=== PATIENT | male | born 1950 | race Caucasian/White ===

== ENCOUNTER 2017-02-25 10:39 | Inpatient (IN) | payer MEDICARE, BC ==
[~2017-02-25] VITALS: Ht 180.3 cm; Wt 107.9 kg
[2017-02-25 10:42] VITALS: BP 148/85; PULSE 87; RESP 16; TEMP 98.6; O2SAT 96
--- NOTE | 2017-02-25 11:20 | PD ---
HPI Chief Complaint: Laceration/Skin Injury Time Seen by Provider: 11:19 Travel History International Travel<30 days: No Contact w/Intl Traveler<30days: No Traveled to known affect area: No PFSH Past Medical History Hx Anticoagulant Therapy: Yes Cardiovascular Problems: Yes Allergies-Medications (Allergen,Severity, Reaction): Coded Allergies: Penicillins (Verified Allergy, Unknown, 02/25/17) codeine (Verified Allergy, Unknown, 02/25/17) Reported Meds & Prescriptions Reported Meds & Active Scripts Active Data Data Last Documented VS Vital Signs Date Time Temp Pulse Resp B/P (MAP) Pulse Ox O2 Delivery O2 Flow Rate FiO2 02/25/17 14:00 98.4 86 16 136/82 (100) 100 Room Air Orders Orders Finger ([id number]) (02/25/17 ) Basic Metabolic Panel (Bmp) (02/25/17 12:21) Complete Blood Count With Diff (02/25/17 12:21) Prothrombin Time / Inr (Pt) (02/25/17 12:21) Act Partial Throm Time (Ptt) (02/25/17 12:21) Iv Access Insert/Monitor (02/25/17 12:21) NPO (02/25/17 12:21) Sodium Chloride 0.9% Flush (Ns Flush) (02/25/17 12:30) Electrocardiogram (02/25/17 12:21) Diet Npo (02/25/17 Lunch) Consent (02/25/17 12:23) Consult Hand Surgery (02/25/17 ) (Hub Use Only)Inp Phy Cons/Ref (02/25/17 ) Ketorolac Inj (Toradol Inj) (02/25/17 14:00) Admit Order (Ed Use Only) (02/25/17 13:57) Labs Laboratory Tests Test 02/25/17 12:47 White Blood Count 4.9 TH/MM3 Red Blood Count 3.89 MIL/MM3 Hemoglobin 12.7 GM/DL Hematocrit 37.7 % Mean Corpuscular Volume 97.1 FL Mean Corpuscular Hemoglobin 32.8 PG Mean Corpuscular Hemoglobin Concent 33.8 % Red Cell Distribution Width 13.6 % Platelet Count 138 TH/MM3 Mean Platelet Volume 6.4 FL Neutrophils (%) (Auto) 58.4 % Lymphocytes (%) (Auto) 31.0 % Monocytes (%) (Auto) 8.3 % Eosinophils (%) (Auto) 1.6 % Basophils (%) (Auto) 0.7 % Neutrophils # (Auto) 2.9 TH/MM3 Lymphocytes # (Auto) 1.5 TH/MM3 Monocytes # (Auto) 0.4 TH/MM3 Eosinophils # (Auto) 0.1 TH/MM3 Basophils # (Auto) 0.0 TH/MM3 CBC Comment DIFF FINAL Differential Comment Prothrombin Time 11.7 SEC Prothromb Time International Ratio 1.1 RATIO Activated Partial Thromboplast Time 30.5 SEC Blood Urea Nitrogen 15 MG/DL Creatinine 1.24 MG/DL Random Glucose 101 MG/DL Calcium Level 9.1 MG/DL Sodium Level 141 MEQ/L Potassium Level 4.1 MEQ/L Chloride Level 108 MEQ/L Carbon Dioxide Level 27.4 MEQ/L Anion Gap 6 MEQ/L Estimat Glomerular Filtration Rate 58 ML/MIN MDM Medical Decision Making Medical Screen Exam Complete: Yes Emergency Medical Condition: Yes Medical Record Reviewed: Yes Scripts Hydrocodone-Acetaminophen (Hydrocodone-Acetaminophen) 7.5-325 mg Tab 1 TAB PO Q4H Y for PAIN 1-10, #30 TAB Prov: Holland Rondon MD, R3 02/26/17 Lexie Brock Feb 25, 2017 11:20
--- NOTE | 2017-02-25 11:37 | RADRPT ---
EXAM DATE/TIME: 02/25/2017 11:13 [place] COMPARISON: No previous studies available for comparison. INDICATIONS : Right hand first digit laceration. Patient states he smashed the top of his thumb in a piece of equip ment. MEDICAL HISTORY : None. SURGICAL HISTORY : None. ENCOUNTER: Initial ACUITY: 1 day PAIN SCORE: 9/10 LOCATION: Right hand, first digit. FINDINGS: There is soft tissue injury to the distal portion of the first finger. There also appears to be a fra cture involving the terminal tuft of the distal phalanx. No joint dislocation is seen. There is overl michelle gauze material. There is a BB in the soft tissues at the base of the first metacarpal. CONCLUSION: 1. Soft tissue injury and fracture of the distal phalanx of the first finger. 2. Single BB in the soft tissues at the base of the first metacarpal. Man Wong MD on February 25, 2017 at 11:35 Board Certified Radiologist. This report was verified electronically.
[2017-02-25] MEDS ORDERED: LIDOCAINE HCL 1% PF 5 ML AMPULE OTHER ONE (12:00)
[2017-02-25] MEDS ORDERED: PHENYLEPH/NS 1000 MCG/10 ML SYR IV ONE (12:00)
[2017-02-25] MEDS ORDERED: ONDANSETRON HCL 4 MG/2 ML VIAL IV PUSH ONE (12:00)
[2017-02-25] MEDS ORDERED: ROCURONIUM INJ 50 MG/5 ML SYRINGE IV PUSH ONE (12:00)
[2017-02-25] MEDS ORDERED: DEXAMETHASONE SOD PHOS 4 MG/ML VIAL IV ONE (12:00)
[2017-02-25] MEDS ORDERED: ePHEDrine/NS 25 MG/5 ML SYR IV ONE (12:00)
[2017-02-25] MEDS ORDERED: MIDAZOLAM HCL 2 MG/2 ML VIAL IV ONE (12:00)
[2017-02-25] MEDS ORDERED: PROPOFOL 200 MG/20 ML AMP IV ONE (12:00)
[2017-02-25] MEDS ORDERED: SODIUM CHLOR 0.9% 250 ML INJ 250 ML IV ONE (12:00)
--- NOTE | 2017-02-25 12:00 | PD ---
HPI Chief Complaint: Laceration/Skin Injury Time Seen by Provider: 13:10 Travel History International Travel<30 days: No Contact w/Intl Traveler<30days: No Traveled to known affect area: No History of Present Illness HPI 67-year-old male here for evaluation of right thumb injury/laceration. Patient reports the thumb was crushed by a briar wood sorter prior to arrival while at work. Patient is right hand dominant. He denies paresthesia or weakness of the thumb. Tetanus immunization is up-to-date. He reports no other injury. [facility] Past Medical History Narrative Medical Afib, hypertension, hyperlipidemia Hx Anticoagulant Therapy: Yes Cardiovascular Problems: Yes Social History Tobacco Use: No Allergies-Medications (Allergen,Severity, Reaction): Coded Allergies: Penicillins (Verified Allergy, Unknown, 02/25/17) codeine (Verified Allergy, Unknown, 02/25/17) Review of Systems Except as stated in HPI: all other systems reviewed are Neg Physical Exam Narrative GENERAL: Well-nourished, well-developed patient. SKIN: Focused skin assessment. Right thumb: finger tip amputation with large evulsion skin laceration and nail bed injury. No visible/palpable bone. HEAD: Normocephalic. EYES: No scleral icterus. No injection or drainage. NECK: Supple, trachea midline. No JVD or lymphadenopathy. CARDIOVASCULAR: Regular rate and rhythm without murmurs, gallops, or rubs. RESPIRATORY: Breath sounds equal bilaterally. No accessory muscle use. GASTROINTESTINAL: Abdomen soft, non-tender, nondistended. MUSCULOSKELETAL: No cyanosis, or edema. Right thumb: Tip amputation with large avulsion skin laceration and nail bed injury. Patient can fully flex and extend the digit. The extremity is neurovascular intact. Bleeding well controlled. Data Data Last Documented VS Vital Signs Date Time Temp Pulse Resp B/P (MAP) Pulse Ox O2 Delivery O2 Flow Rate FiO2 02/25/17 11:19 16 02/25/17 10:42 98.6 87 148/85 (106) 96 Orders Orders Finger ([id number]) (02/25/17 ) Basic Metabolic Panel (Bmp) (02/25/17 12:21) Complete Blood Count With Diff (02/25/17 12:21) Prothrombin Time / Inr (Pt) (02/25/17 12:21) Act Partial Throm Time (Ptt) (02/25/17 12:21) Iv Access Insert/Monitor (02/25/17 12:21) NPO (02/25/17 12:21) Sodium Chloride 0.9% Flush (Ns Flush) (02/25/17 12:30) Electrocardiogram (02/25/17 12:21) Diet Npo (02/25/17 Lunch) Consent (02/25/17 12:23) Consult Hand Surgery (02/25/17 ) (Hub Use Only)Inp Phy Cons/Ref (02/25/17 ) Ketorolac Inj (Toradol Inj) (02/25/17 14:00) Admit Order (Ed Use Only) (02/25/17 13:57) Labs Laboratory Tests Test 02/25/17 12:47 White Blood Count 4.9 TH/MM3 Red Blood Count 3.89 MIL/MM3 Hemoglobin 12.7 GM/DL Hematocrit 37.7 % Mean Corpuscular Volume 97.1 FL Mean Corpuscular Hemoglobin 32.8 PG Mean Corpuscular Hemoglobin Concent 33.8 % Red Cell Distribution Width 13.6 % Platelet Count 138 TH/MM3 Mean Platelet Volume 6.4 FL Neutrophils (%) (Auto) 58.4 % Lymphocytes (%) (Auto) 31.0 % Monocytes (%) (Auto) 8.3 % Eosinophils (%) (Auto) 1.6 % Basophils (%) (Auto) 0.7 % Neutrophils # (Auto) 2.9 TH/MM3 Lymphocytes # (Auto) 1.5 TH/MM3 Monocytes # (Auto) 0.4 TH/MM3 Eosinophils # (Auto) 0.1 TH/MM3 Basophils # (Auto) 0.0 TH/MM3 CBC Comment DIFF FINAL Differential Comment Prothrombin Time 11.7 SEC Prothromb Time International Ratio 1.1 RATIO Activated Partial Thromboplast Time 30.5 SEC Blood Urea Nitrogen 15 MG/DL Creatinine 1.24 MG/DL Random Glucose 101 MG/DL Calcium Level 9.1 MG/DL Sodium Level 141 MEQ/L Potassium Level 4.1 MEQ/L Chloride Level 108 MEQ/L Carbon Dioxide Level 27.4 MEQ/L Anion Gap 6 MEQ/L Estimat Glomerular Filtration Rate 58 ML/MIN MDM Medical Decision Making Medical Screen Exam Complete: Yes Emergency Medical Condition: Yes Differential Diagnosis Fingertip amputation, avulsion skin injury, finger nail injury Narrative Course 67-year-old male here with right thumb fingertip amputation caused by a briar wood sorter prior to arrival. The extremity is neurovascular intact. No visible of palpable bone. X-ray show a small distal tuft fracture. Tetanus up to date. spoke with toy consultant hand surgeon Dr. Angella Mata who would like the patient admitted to medicine & will plan to take patient to the OR this afternoon. Patient will be kept NPO. Non adherent dressing applied. Labs reviewed nothing acutely abnormal. Physician Communication Physician Communication [phone] Spoke with family residents who agreed to admit patient to their services. Diagnosis Primary Impression: Amputation of finger tip Qualified Codes: S68.129A - Partial traumatic metacarpophalangeal amputation of unspecified finger, initial encounter Admitting Information Admitting Physician Requests: Admit Tracey Goodson Feb 25, 2017 12:00
[2017-02-25] MEDS ORDERED: SODIUM CHLORIDE 0.9% FLUSH 10 ML FLUSH IV FLUSH PRN (12:30)
[2017-02-25 12:56] LABS: AUTOMATED NEUTROPHIL # 2.9 TH/MM3 (1.8-7.7); BASOPHIL % 0.7 % (0.0-2.0); EOSINOPHIL # 0.1 TH/MM3 (0-0.4); EOSINOPHIL % 1.6 % (0.0-4.0); HEMATOCRIT 37.7 % (39.0-51.0); HEMO FLAGS DIFF FINAL; LYMPHOCYTE # 1.5 TH/MM3 (1.0-4.8); MEAN CELL VOLUME 97.1 FL (80.0-100.0); MEAN CORPUSCULAR HEMOGLOBIN 32.8 PG (27.0-34.0); MEAN CORPUSCULAR HGB CONC 33.8 % (32.0-36.0); MONO % 8.3 % (0.0-8.0); NEUT % 58.4 % (16.0-70.0); PLATELET COUNT 138 TH/MM3 (150-450); RED BLOOD COUNT 3.89 MIL/MM3 (4.50-5.90); RED CELL DISTRIBUTION WIDTH 13.6 % (11.6-17.2); WHITE BLOOD COUNT 4.9 TH/MM3 (4.0-11.0)
[2017-02-25 13:08] LABS: APTT (PATIENT) 30.5 SEC (24.3-30.1); INTERNATIONAL NORMALIZED RATIO 1.1 RATIO; PROTHROMBIN TIME - PATIENT 11.7 SEC (9.8-11.6)
[2017-02-25 13:19] LABS: BICARBONATE 27.4 MEQ/L (21.0-32.0); POTASSIUM 4.1 MEQ/L (3.5-5.1)
[2017-02-25 14:00] VITALS: BP 136/82; PULSE 86; RESP 16; TEMP 98.4; O2SAT 100
[2017-02-25] MEDS ORDERED: KETOROLAC TROMETHAMINE 60 MG/2 ML (IM) VIAL IM ONE (14:00)
[2017-02-25] MEDS ORDERED: LIDOCAINE HCL 2% 50 ML VIAL ONE (14:15)
--- NOTE | 2017-02-25 14:26 | HHI.HP ---
[facility] Service Family Medicine Primary Care Physician No Primary Care Physician Admission Diagnosis R THUMB FINGERTIP INJURY/AMPUTATION Diagnoses: International Travel<30 Days: No Contact w/Intl Traveler<30days: No Known Affected Area: No History of Present Illness 67 y/o M w/hx of afib presents with amputated 1st right digit. 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 Afterwards, he saw profuse bleeding and made a fist with his right hand; then he buried his thumb in his fist and came to hospital. Upon entering the hospital, he threw his glove with a piece of his finger in it into the trash can. He denies numbness, tingling, or weakness. Is able to move the fingers in his right hand. Tetanus shot within a year. Patient currently endorses 8/10 throbbing pain at his hand. (Rochelle Sandoval MD R1) Review of Systems Constitutional: DENIES: Fever, Chills, Dizziness Endocrine: DENIES: Heat/cold intolerance, Polyuria Eyes: DENIES: Blurred vision, Eye inflammation, Vision loss Ears, nose, mouth, throat: DENIES: Hearing loss, Nasal discharge, Ear Pain Respiratory: DENIES: Cough, Shortness of breath Cardiovascular: DENIES: Chest pain, Palpitations Gastrointestinal: DENIES: Abdominal pain, Constipation, Diarrhea Genitourinary: DENIES: Urinary frequency, Urgency Musculoskeletal: DENIES: Joint pain, Muscle aches, Stiffness Integumentary: DENIES: Pruritus, Rash Hematologic/lymphatic: DENIES: Bruising, Lymphadenopathy Neurologic: DENIES: Headache, Paresthesias, Poor Balance Psychiatric: DENIES: Anxiety, Mood changes (Rochelle Sandoval MD R1) Past Family Social History Past Medical History afib - controlled with medication Past Surgical History Knee left right ankle - cataracts - 10 years ago Reported Medications Atorvaststin 40 mg AM amlodipine 2.5 mg pm propafenone HCL 325 mg pantoprazole 40 mg BID eliquis 5 mg BID valsartan 160 mg BID (Rochelle Sandoval MD R1) Allergies: Coded Allergies: Penicillins (Verified Allergy, Unknown, 02/25/17) codeine (Verified Allergy, Unknown, 02/25/17) Social History drink: weekends, 2/3 drinks/day or 4crown royal (Rochelle Sandoval MD R1) Physical Exam Vital Signs Vital Signs Date Time Temp Pulse Resp B/P (MAP) Pulse Ox O2 Delivery O2 Flow Rate FiO2 02/25/17 11:19 16 02/25/17 10:42 98.6 87 16 148/85 (106) 96 Physical Exam GENERAL: Pleasant older overweight gentleman laying in bed appearing uncomfortable. Right elbow is bent and hand is bandanged w/TINO-wrap and elevated. SKIN: Cool and dry. HEAD: Atraumatic. Normocephalic. EYES: Extraocular motions intact. ENT: Nose without bleeding, purulent drainage or septal hematoma. Airway patent. NECK: Trachea midline. No JVD or lymphadenopathy. CARDIOVASCULAR: Regular rate and rhythm. RESPIRATORY: Clear to auscultation. Breath sounds equal bilaterally. GASTROINTESTINAL: Abdomen soft, non-tender, nondistended. MUSCULOSKELETAL: Full ROM intact at extremities. Blood visible through bandage near the thumb on right hand. patient is able to move 4 other digits and sensation at all fingers is intact. NEUROLOGICAL: Awake and alert. Motor and sensory grossly within normal limits. Normal speech. Laboratory Laboratory Tests Test 02/25/17 12:47 White Blood Count 4.9 Red Blood Count 3.89 Hemoglobin 12.7 Hematocrit 37.7 Mean Corpuscular Volume 97.1 Mean Corpuscular Hemoglobin 32.8 Mean Corpuscular Hemoglobin Concent 33.8 Red Cell Distribution Width 13.6 Platelet Count 138 Mean Platelet Volume 6.4 Neutrophils (%) (Auto) 58.4 Lymphocytes (%) (Auto) 31.0 Monocytes (%) (Auto) 8.3 Eosinophils (%) (Auto) 1.6 Basophils (%) (Auto) 0.7 Neutrophils # (Auto) 2.9 Lymphocytes # (Auto) 1.5 Monocytes # (Auto) 0.4 Eosinophils # (Auto) 0.1 Basophils # (Auto) 0.0 CBC Comment DIFF FINAL Differential Comment Prothrombin Time 11.7 Prothromb Time International Ratio 1.1 Activated Partial Thromboplast Time 30.5 Blood Urea Nitrogen 15 Creatinine 1.24 Random Glucose 101 Calcium Level 9.1 Sodium Level 141 Potassium Level 4.1 Chloride Level 108 Carbon Dioxide Level 27.4 Anion Gap 6 Estimat Glomerular Filtration Rate 58 (Rochelle Sandoval MD R1) Result Diagram: 02/25/17 1247 02/25/17 1247 Caprini VTE Risk Assessment Caprini VTE Risk Assessment: Mod/High Risk (score >= 2) Caprini Risk Assessment Model Point Value = 1 Point Value = 2 Point Value = 3 Point Value = 5 Age 41-60 Minor surgery BMI > 25 kg/m2 Swollen legs Varicose veins or History of unexplained or recurrent spontaneous Oral contraceptives or hormone replacement Sepsis (< 1 month) Serious lung disease, including pneumonia (< 1 month) Abnormal pulmonary function Acute myocardial infarction Congestive heart failure (< 1 month) History of inflammatory bowel disease Medical patient at bed rest Age 61-74 Arthroscopic surgery Major open surgery (> 45 min) Laparoscopic surgery (> 45 min) Malignancy Confined to bed (> 72 hours) Immobilizing plaster cast Central venous access Age >= 75 History of VTE Family history of VTE Factor V Leiden Prothrombin [id number] Lupus anticoagulant Anticardiolipin antibodies Elevated serum homocysteine Heparin-induced thrombocytopenia Other congenital or acquired thrombophilia Stroke (< 1 month) Elective arthroplasty Hip, pelvis, or leg fracture Acute spinal cord injury (< 1 month) Prophylaxis Regimen Total Risk Factor Score Risk Level Prophylaxis Regimen 0-1 Low Early ambulation 2 Moderate Order ONE of the following: *Sequential Compression Device (SCD) *Heparin 5000 units SQ BID 3-4 Higher Order ONE of the following medications: *Heparin 5000 units SQ TID *Enoxaparin/Lovenox 40 mg SQ daily (WT < 150 kg, CrCl > 30 mL/min) *Enoxaparin/Lovenox 30 mg SQ daily (WT < 150 kg, CrCl > 10-29 mL/min) *Enoxaparin/Lovenox 30 mg SQ BID (WT < 150 kg, CrCl > 30 mL/min) AND/OR *Sequential Compression Device (SCD) 5 or more Highest Order ONE of the following medications: *Heparin 5000 units SQ TID (Preferred with Epidurals) *Enoxaparin/Lovenox 40 mg SQ daily (WT < 150 kg, CrCl > 30 mL/min) *Enoxaparin/Lovenox 30 mg SQ daily (WT < 150 kg, CrCl > 10-29 mL/min) *Enoxaparin/Lovenox 30 mg SQ BID (WT < 150 kg, CrCl > 30 mL/min) AND *Sequential Compression Device (SCD) (Rochelle Sandoval MD R1) Assessment and Plan Code Status FULL Discussed Condition With Dr. Latif (Rochelle Sandoval MD R1) Attending Attestation THIS CASE WAS DISCUSSED WITH THE RESIDENT PHYSICIANS. I HAVE REVIEWED THE RECORD AND AGREE WITH THE ABOVE NOTE AND PLAN OF CARE WAS DISCUSSED. I HAVE AUTHORIZED THE ORDER FOR ADMISSION TO AN IN-PATIENT STATUS. (Radha Jorge MD) Problem List: (1) Amputation of finger tip ICD Codes: S68.129A - Partial traumatic metacarpophalangeal amputation of unspecified finger, initial encounter Status: Acute Plan: Neurovascularly intact. XR of right hand shows small distal tuft fracture. -Hand Surgery consulted. -Patient transported to the OR at around 1430 for repair. - will provide Tylenol and [place] PRN for pain post-surgery (2) FEN Plan: GI Prophy: home pantoprazole 40 mg daily Nutrition: NPO for surgery Fluids: none Electrolytes: none DVT prophy: SCDs (Rochelle Sandoval MD R1) Physician Certification 2 Midnight Certification Type: Admission for Inpatient Services Order for Inpatient Services The services are ordered in accordance with Medicare regulations or non- Medicare payer requirements, as applicable. In the case of services not specified as inpatient-only, they are appropriately provided as inpatient services in accordance with the 2-midnight benchmark. Estimated LOS (days): 2 2 days is the estimated time the patient will need to remain in the hospital, assuming treatment plan goals are met and no additional complications. Post-Hospital Plan: Home (Rochelle Sandoval MD R1) 2 Midnight Certification Type: Admission for Inpatient Services Post-Hospital Plan: Home (Radha Jorge MD) Problem Qualifiers (1) Amputation of finger tip: Qualified Codes: S68.129A - Partial traumatic metacarpophalangeal amputation of unspecified finger, initial encounter Rochelle Sandoval MD R1 Feb 25, 2017 14:26 Radha Jorge MD Feb 26, 2017 13:29
[2017-02-25] MEDS ORDERED: NALOXONE HCL 0.4 MG/ML AMP IV PUSH PRN ×2 (14:45→15:15)
[2017-02-25] MEDS ORDERED: ACETAMINOPHEN 1000 MG/100 ML 100 ML IV ONE (15:07)
[2017-02-25] MEDS ORDERED: ACETAMINOPHEN/HYDROcodone 325 MG/5 MG TAB PO PRN (15:15)
[2017-02-25] MEDS ORDERED: ACETAMINOPHEN 325 MG TAB PO PRN ×2 (15:15)
[2017-02-25] MEDS ORDERED: DOCUSATE SODIUM 50 MG/SENNA 8.6 MG TAB PO PRN (15:15)
[2017-02-25] MEDS ORDERED: MORPHINE SULFATE 4 MG/ML INJ IV PUSH PRN (15:15)
[2017-02-25] MEDS ORDERED: CLINDAMYCIN PHOS 600 MG/4 ML VIAL ONE (15:32)
[2017-02-25] MEDS ORDERED: NEOMYCIN/POLYMYXIN 1 ML G.U. IRRIGANT IRRIGATION ONE (16:19)
[2017-02-25] MEDS ORDERED: BACITRACIN TOP OINT 15 GM TUBE ONE (16:46)
[2017-02-25] MEDS ORDERED: *morphine SULFATE 8 MG/ML PERIprocedure ONLY ONE (18:09)
--- NOTE | 2017-02-25 18:15 | PD.ORT.PN ---
Subjective Subjective Remarks See dictated consult note for full details. Patient comfortable in recovery room. 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 Objective Vitals Vital Signs Date Time Temp Pulse Resp B/P (MAP) Pulse Ox O2 Delivery O2 Flow Rate FiO2 02/25/17 17:45 77 16 130/85 (100) 97 Room Air 02/25/17 17:33 97.5 81 16 146/91 (109) 96 Room Air 02/25/17 15:08 02/25/17 14:00 98.4 86 16 136/82 (100) 100 Room Air 02/25/17 11:19 16 02/25/17 10:42 98.6 87 16 148/85 (106) 96 I/O 02/24/17 02/24/17 02/24/17 02/25/17 02/25/17 02/25/17 07:00 15:00 23:00 07:00 15:00 23:00 Intake Total 600 ml Output Total 25 ml Balance 575 ml Intake IV Total 0 ml Other 600 ml Output Urine Total 0 ml Estimated Blood Loss 25 ml Result Diagram: 02/25/17 1247 02/25/17 1247 Other Results Laboratory Tests Test 02/25/17 12:47 Prothromb Time International Ratio 1.1 RATIO Prothrombin Time 11.7 SEC (9.8-11.6) Imaging Last 24 hours Impressions Finger X-Ray 02/25/17 0000 Signed Impressions: Service Date/Time: Saturday, February 25, 2017 11:13 - CONCLUSION: 1. Soft tissue injury and fracture of the distal phalanx of the first finger. 2. Single BB in the soft tissues at the base of the first metacarpal. Man Wong MD Objective Remarks Dressing in place, good capillary refill to flap Assessment & Plan Assessment and Plan 67y RHD male pmhx Afib POD0 s/p I&D right thumb, [place] advancement flap right thumb -Warmer to right thumb to promote blood flow -Okay to discharge tomorrow with followup in office on , -Keep dressing in place until followup -Medical management of AFib Angella Mata MD Feb 25, 2017 18:15
[2017-02-25] MEDS ORDERED: DO NOT ADM ANY ANTICOAGULANT DRUGS PRN (18:30)
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
--- NOTE | 2017-02-25 20:24 | MP ---
cc: ANGELLA MATA DATE OF SURGERY: 02/25/2017. PREOPERATIVE DIAGNOSIS: Partial amputation, right thumb. POSTOPERATIVE DIAGNOSIS: Partial amputation, right thumb. OPERATIVE PROCEDURE PERFORMED: 1. Irrigation, debridement, open amputation and fracture right thumb including skin and subcutaneous tissue, muscle and bone. 2. Interpretation of x-rays throughout the procedure by the surgeon, right thumb. 3. Advancement flap or rotational flap or adjacent tissue transfer right thumb with partial shortening of the right thumb distal phalanx approximately 10cm2. SURGEON: Dr. Angella Mata. ANESTHESIA: General and local. TOURNIQUET TIME: 59 minutes at 200 mmHg. INDICATIONS FOR THE PROCEDURE: Polo Nguyen is a 67-year-old right hand dominant male who was using a feed grinder earlier today when he sustained partial amputation of the right thumb. At this time, I recommended emergent irrigation and debridement, possible rotational flap, possible skin graft, possible revision amputation and the patient elected to proceed. Risks were explained but not limited to wound complications, infection, need for additional surgeries on the thumb, nail deformity, pain, stiffness, paresthesias and he elected to proceed. DESCRIPTION OF THE PROCEDURE IN DETAIL: The patient was identified in the preoperative holding area and the correct extremity was marked. The patient was taken to the operating room where anesthesia was induced. The right upper extremity was prepped and draped in normal sterile fashion. Initially 3 liters of antibiotic saline were irrigated over the open wound and the distal phalanx fracture was debrided using a combination of rongeurs and curettes. Again, there was an oblique amputation of the thumb at the level of the distal phalanx in a dorsal to volar direction with a large volar skin flap with significant destruction of the ulnar distal tissue. The nail plate was elevated. Initially I was going to consider keeping the nail bed and doing a Clinton advancement flap, but I would have only had to shorten the distal phalanx approximately half a centimeter to remove the nail bed to hopefully decrease the chance of any persistent nail deformity. I then decided to shorten the distal phalanx just to the level of the eponychial fold with a saw and then performed a Clinton rotational flap to provide coverage from volar to dorsal. This provided good coverage over the distal phalanx. The flexor pollicis longus tendon was protected throughout the procedure. The germinal matrix was ablated. The wound was then irrigated with another liter of antibiotic saline. This was confirmed under fluoroscopy. Then chromic was used to close the amputation site. The tourniquet was released. The patient had good capillary refill to the flap. Approximately 10 cc of 2% lidocaine with no epinephrine was used to perform local anesthesia over the thumb. The patient was awakened from anesthesia without any complications. He was placed into a bulky dressing and a warmer was placed over the thumb in the recovery room. The patient will remain admitted overnight for medical management. He will likely be discharged tomorrow once his comes back in town from [place] and I will see him this week. It was discussed with the patient and his that he may have tenderness over the tip of the finger, hypersensitivity for some time. He may have some stiffness over the IP joint or require therapy and splinting. He may have a nail remnant. He may require additional surgeries on the thumb if there is any comprise to the vascular supply of the flap. We will watch him closely. He will continue his Eliquis. Otherwise the patient tolerated the procedure well. MD PARIS Powell/RANDY /6:29 PM /8:11 PM [email or web address]
[2017-02-25 20:25] VITALS: BP 121/80; PULSE 72; RESP 18; TEMP 97.1; O2SAT 95
[2017-02-25] MEDS: MORPHINE SULFATE 4 MG/ML INJ IV PUSH PRN (21:24)
[2017-02-25] MEDS: ONDANSETRON HCL 4 MG/2 ML VIAL IVP PRN (21:26)
[2017-02-25] MEDS: ACETAMINOPHEN/HYDROcodone 325 MG/7.5 MG TAB PO PRN (23:11)
[2017-02-26 00:35] VITALS: BP 100/69; PULSE 65; RESP 18; TEMP 97.6; O2SAT 95
[2017-02-26] MEDS: MORPHINE SULFATE 4 MG/ML INJ IV PUSH PRN ×2 (01:09→04:32)
[2017-02-26 04:25] VITALS: BP 97/66; PULSE 63; RESP 18; TEMP 97.1; O2SAT 95
[2017-02-26] MEDS: ONDANSETRON HCL 4 MG/2 ML VIAL IVP PRN (04:32)
[2017-02-26] MEDS: ACETAMINOPHEN/HYDROcodone 325 MG/7.5 MG TAB PO PRN ×2 (06:03→10:59)
[2017-02-26 06:30] LABS: AUTOMATED NEUTROPHIL # 5.9 TH/MM3 (1.8-7.7); BASOPHIL % 0.1 % (0.0-2.0); HEMATOCRIT 36.6 % (39.0-51.0); HEMO FLAGS DIFF FINAL; LYMPH % 6.4 % (9.0-44.0); LYMPHOCYTE # 0.4 TH/MM3 (1.0-4.8); MEAN CELL VOLUME 97.1 FL (80.0-100.0); MEAN CORPUSCULAR HEMOGLOBIN 33.2 PG (27.0-34.0); MEAN CORPUSCULAR HGB CONC 34.2 % (32.0-36.0); MONO % 4.5 % (0.0-8.0); PLATELET COUNT 127 TH/MM3 (150-450); RED BLOOD COUNT 3.77 MIL/MM3 (4.50-5.90); RED CELL DISTRIBUTION WIDTH 13.7 % (11.6-17.2); WHITE BLOOD COUNT 6.6 TH/MM3 (4.0-11.0)
[2017-02-26 06:51] LABS: ANION GAP 9 MEQ/L (5-15); AST (GOT) 153 U/L (15-37); BICARBONATE 24.4 MEQ/L (21.0-32.0); BLOOD UREA NITROGEN 16 MG/DL (7-18); CHLORIDE 106 MEQ/L (98-107); GLOMERULAR FILTRATION RATE 58 ML/MIN (>89); POTASSIUM 4.4 MEQ/L (3.5-5.1); SODIUM (NA) 139 MEQ/L (136-145)
[2017-02-26 06:52] LABS: ALT (GPT) 145 U/L (12-78)
[2017-02-26 06:55] LABS: ALKALINE PHOSPHATASE 113 U/L (45-117); TOTAL BILIRUBIN ADULT 0.7 MG/DL (0.2-1.0)
[2017-02-26 08:00] VITALS: BP 103/70; PULSE 80; RESP 18; TEMP 96.7; O2SAT 93
--- NOTE | 2017-02-26 08:50 | HHI.DCPOC ---
Discharge Care Plan Diagnosis: (1) Amputation of finger tip (2) FEN (3) Atrial fibrillation Goals to Promote Your Health * To prevent worsening of your condition and complications * To maintain your health at the optimal level Directions to Meet Your Goals Take your medications as prescribed Follow your dietary instruction Follow activity as directed Keep your appointments as scheduled Take your immunizations and boosters as scheduled If your symptoms worsen call your PCP, if no PCP go to Urgent Care Center or Emergency Room Smoking is Dangerous to Your Health. Avoid second hand smoke Call the 24-hour hour crisis hotline for domestic abuse at Holland Rondon MD, R3 Feb 26, 2017 08:50
[2017-02-26] MEDS ORDERED: HYDR-3580 PO (08:53)
[2017-02-26 09:30] VITALS: O2SAT 95
[2017-02-26 12:05] VITALS: RESP 16
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
--- NOTE | 2017-02-26 23:04 | EKG ---
Date Performed: 02/25/2017 Time Performed: 12:50:19 PTAGE: 67 years EKG: ATRIAL FIBRILLATION MARKED LEFT AXIS DEVIATION LOW QRS VOLTAGE IN PRECORDIAL LEADS INCOMPLE TE RIGHT BUNDLE BRANCH BLOCK ABNORMAL ECG NO PREVIOUS TRACING DOCTOR: Sloane Weber Interpretating Date/Time 02/26/2017 23:03:21
== END 2017-02-26 18:31 | disposition home or self-care (01) | DRG 906 ==
LOC: NEPD 10:39 → NEDA 14:00 → N06B 18:31
PROVIDERS: ADMIT Family Medicine; ATTEND Family Medicine
PROC: 0JXJ0ZC Transfer Right Hand Subcutaneous Tissue and Fascia with Skin, Subcutaneous Tissue and Fascia, Open Approach (ICD-10-PCS; 2017-02-25)
PROC: 0HTQXZZ Resection of Finger Nail, External Approach (ICD-10-PCS; 2017-02-25)
PROC: 0X6L0Z3 Detachment at Right Thumb, Low, Open Approach (ICD-10-PCS; principal; 2017-02-25 15:20)
DX: S68.021A Partial traumatic metacarpophalangeal amputation of right thumb, initial encounter (principal); I48.91 Unspecified atrial fibrillation; E78.5 Hyperlipidemia, unspecified; I10 Essential (primary) hypertension; W31.2XXA Contact with powered woodworking and forming machines, initial encounter; Y99.0 Civilian activity done for income or pay; Z79.01 Long term (current) use of anticoagulants
CPT/HCPCS: 73140; 80048; 80053; 85025; 85610; 85730; 93005; J0131; J1100; J1885; J2250; J2270; J2370; J2405; J3010; J7050